=== PATIENT | male | born 1950 | race African-American/Black ===

== ENCOUNTER 2021-07-27 10:30 | Emergency (ER) | payer MEDICARE, MEDICAID ==
[~2021-07-27] VITALS: Ht 175.3 cm; Wt 85.0 kg
[2021-07-27 11:44] LABS: BASOPHILS % 0.1 % (0.0-2.0); EOSINOPHILS % 2.4 % (0.0-5.0); HEMATOCRIT. 27.6 % (42.0-52.0); HEMOGLOBIN. 8.8 g/dL (14.0-18.0); LYMPHOCYTES % 17.4 % (20.0-50.0); MEAN CORPUSCULAR HEMOGLOBIN 26.2 pg (28.0-32.0); MEAN CORPUSCULAR VOLUME 81.7 fL (80.0-94.0); MEAN PLATELET VOLUME 6.7 fl (7.4-10.4); MONOCYTES % 12.9 % (2.0-8.0); NEUTROPHILS % 67.2 % (40.0-76.0); PLATELET 255 x1000/uL (130-400); RED BLOOD CELL COUNT 3.38 mill/uL (4.7-6.1); RED CELL DISTRIBUTION WIDTH 16.1 % (11.6-14.6)
[2021-07-27 11:51] LABS: CHLORIDE 116 mEq/L (98-107); INR 1.1; PROTHROMBIN TIME 11.4 sec (9.6-11.0)
[2021-07-27 19:59] VITALS: BP 155/64
== END 2021-07-27 20:00 | disposition home or self-care (01) ==
LOC: ER 10:30
DX: E87.1 Hypo-osmolality and hyponatremia (principal); I10 Essential (primary) hypertension; E11.9 Type 2 diabetes mellitus without complications
CPT/HCPCS: 36415; 71045; 80053; 83880; 85025; 93005; 99285

== ENCOUNTER 2021-09-10 05:32 | Day surgery (SDC) | payer MEDICARE, MEDICAID ==
[~2021-09-10] VITALS: Ht 175.3 cm; Wt 83.0 kg
[2021-09-10 06:33] LABS: BASOPHILS % 0.3 % (0.0-2.0); EOSINOPHILS % 2.8 % (0.0-5.0); HEMOGLOBIN. 9.8 g/dL (14.0-18.0); MEAN CORPUSCULAR HEMOGLOBIN 25.5 pg (28.0-32.0); MEAN CORPUSCULAR VOLUME 80.4 fL (80.0-94.0); MEAN PLATELET VOLUME 7.1 fl (7.4-10.4); MONOCYTES % 11.8 % (2.0-8.0); NEUTROPHILS % 70.1 % (40.0-76.0); PLATELET 241 x1000/uL (130-400); RED BLOOD CELL COUNT 3.85 mill/uL (4.7-6.1); RED CELL DISTRIBUTION WIDTH 17.1 % (11.6-14.6)
[2021-09-10 06:54] LABS: PARTIAL THROMBOPLASTIN TIME 27.9 sec (23.4-31.0)
[2021-09-10] MEDS ORDERED: FERR325T6 PO (07:00)
[2021-09-10] MEDS ORDERED: FURO-152 PO (07:00)
[2021-09-10] MEDS ORDERED: CLON-457 PO (07:00)
[2021-09-10] MEDS ORDERED: GABA-529 PO (07:00)
[2021-09-10] MEDS ORDERED: HYDR100T26 PO (07:00)
[2021-09-10] MEDS ORDERED: AMLO5TAB88 PO (07:00)
[2021-09-10] MEDS ORDERED: METO-385 PO (07:00)
[2021-09-10] MEDS ORDERED: INS7030 SUBCUT (07:00)
[2021-09-10] MEDS ORDERED: TAMS-11 PO (07:00)
[2021-09-10] MEDS ORDERED: LIDOCAINE HCL 1% 20ML VIAL (Pyxis) INJ ONE (07:05)
[2021-09-10] MEDS ORDERED: THROMBIN (BOVINE) 5000 UNITS/VIAL TOP ONE (07:05)
[2021-09-10] MEDS ORDERED: BACITRACIN 15GM TUBE TOP ONE (07:05)
[2021-09-10] MEDS ORDERED: POLYMYXIN B SULFATE 500000 UNITS/VIAL ONE (07:06)
[2021-09-10] MEDS ORDERED: HEPARIN SODIUM 1,000 UNIT/1ML VIAL IV ONE (07:06)
[2021-09-10] MEDS ORDERED: BUPIVACAINE HCL/PF 0.5% (5MG/ML) 10ML ONE ×2 (07:06→08:51)
[2021-09-10] MEDS ORDERED: PROPOFOL 200MG/20ML VIAL IV ONE (07:39)
[2021-09-10] MEDS ORDERED: FENTANYL CITRATE/PF 50MCG/ML 2ML VIAL ONE (07:39)
[2021-09-10] MEDS ORDERED: MIDAZOLAM HCL 2 MG/2 ML VIAL ONE (07:40)
[2021-09-10] MEDS ORDERED: ONDANSETRON HCL 4MG/2ML INJ ONE (07:53)
[2021-09-10] MEDS ORDERED: DEXAMETHASONE 4MG/ML 1ML VIAL ONE (07:53)
[2021-09-10] MEDS ORDERED: LABETALOL 5MG/ML SYR 20 MG/4 ML SYRINGE IV PRN (08:15)
[2021-09-10] MEDS ORDERED: HYDROMORPHONE HCL/PF 2MG/ML CPJ IV PRN (08:15)
[2021-09-10] MEDS ORDERED: MEPERIDINE HCL/PF 25MG/ML CPJ IV PRN (08:15)
[2021-09-10] MEDS ORDERED: LIDOCAINE HCL/EPINEPHRINE 1%-EPI 1:100,000 20 ML VIAL ONE (08:51)
[2021-09-10] MEDS: ONDANSETRON HCL 4MG/2ML INJ IV PRN ×2 (10:16→10:17)
[2021-09-10 10:19] VITALS: BP 167/94
== END 2021-09-10 12:35 | disposition home or self-care (01) ==
LOC: OR 05:32
PROVIDERS: ATTEND Surgery Vascular Surgery
DX: I12.0 Hypertensive chronic kidney disease with stage 5 chronic kidney disease or end stage renal disease (principal); N18.6 End stage renal disease; E11.22 Type 2 diabetes mellitus with diabetic chronic kidney disease; Z87.891 Personal history of nicotine dependence; Z79.82 Long term (current) use of aspirin; Z79.84 Long term (current) use of oral hypoglycemic drugs; Z79.899 Other long term (current) drug therapy; Z98.890 Other specified postprocedural states; Z20.822 Contact with and (suspected) exposure to COVID-19
CPT/HCPCS: 36415; 36830; 80048; 82962; 85025; 85610; 85730; 87426; C1768; J1100; J1644; J2175; J2250; J2405; J2704; J3010; J3490; J7030

== ENCOUNTER → 2022-05-08 | Day surgery (SDC) | payer MEDICARE, MEDICAID ==
[~2022-05-08] VITALS: Ht 175.3 cm; Wt 80.7 kg
[~2022-05-08] MED LIST: AMLO5TAB88 PO; BACITRACIN 15GM TUBE TOP ONE; BUPIVACAINE HCL 0.5% (5MG/ML) 50ML ONE; CEFAZOLIN SODIUM 1000MG/VIAL ONE; CLON-457 PO; CLON0.2T PO; FENTANYL CITRATE/PF 50MCG/ML 2ML VIAL ONE; FERR325T6 PO; FURO-152 PO; GABA-529 PO; GLYCOPYRROLATE 0.2 MG/ML 2ML VIAL ONE; HYDR100T26 PO; HYDROMORPHONE HCL/PF 2MG/ML CPJ IV PRN; INS7030 SUBCUT; LABETALOL 5MG/ML SYR 20 MG/4 ML SYRINGE IV PRN; MEPERIDINE HCL/PF 25MG/ML CPJ IV PRN; METO-385 PO; MIDAZOLAM HCL 2 MG/2 ML VIAL ONE; ONDANSETRON HCL 4MG/2ML INJ IV PRN; PROPOFOL 200MG/20ML VIAL IV ONE; SODI650T PO; SODIUM CHLORIDE 0.9% 500 ML IV SCH; TAMS-11 PO; TRAMADOL 50MG TABLET PO PRN
== END | disposition home or self-care (01) ==
LOC: OR 06:30
PROVIDERS: ATTEND Urology
DX: N43.2 Other hydrocele (principal); I12.0 Hypertensive chronic kidney disease with stage 5 chronic kidney disease or end stage renal disease; N18.6 End stage renal disease; E11.22 Type 2 diabetes mellitus with diabetic chronic kidney disease; Z79.899 Other long term (current) drug therapy; Z98.890 Other specified postprocedural states; Z87.891 Personal history of nicotine dependence; Z82.49 Family history of ischemic heart disease and other diseases of the circulatory system; Z83.3 Family history of diabetes mellitus; Z90.79 Acquired absence of other genital organ(s); Z20.822 Contact with and (suspected) exposure to COVID-19
CPT/HCPCS: 36415; 55060; 80048; 87426; 88302; C9803; J0690; J2250; J2704; J3010; J3490